=== PATIENT | female | born 1965 | race Two or more races ===

== ENCOUNTER 2024-01-25 18:44 | Emergency (ER) | payer OTHER ==
[2024-01-25 18:55] VITALS: BP 141/82; PULSE 89; RESP 20; TEMP 97.6; BMI 29.2
[2024-01-25] MEDS ORDERED: IBUPROFEN 600 MG TABLET (FP) PO ONE (19:14)
[2024-01-25] MEDS: IBUPROFEN 600 MG TABLET (FP) PO ONE (19:18)
== END 2024-01-25 21:54 | disposition home or self-care (01) ==
LOC: JERFT 18:44
PROC: 2W3SX1Z Immobilization of Right Foot using Splint (ICD-10-PCS; principal; 2024-01-25)
DX: S82.391A Other fracture of lower end of right tibia, initial encounter for closed fracture (principal); S82.61XA Displaced fracture of lateral malleolus of right fibula, initial encounter for closed fracture; W17.2XXA Fall into hole, initial encounter; X50.1XXA Overexertion from prolonged static or awkward postures, initial encounter
CPT/HCPCS: 73610-TC-RT-FY; 73630-TC-RT-FY; 99283-25